=== PATIENT | female | born 1985 | race Hispanic/Latino ===

== ENCOUNTER 2021-10-11 11:30 | Outpatient (CLI) | payer OTHER | END 2021-10-11 11:31 | disposition home or self-care (01) | LOC: CSHLAB 11:30 | PROVIDERS: ATTEND Student in an Organized Health Care Education/Training Program | DX: O24.319 Unspecified pre-existing diabetes mellitus in pregnancy, unspecified trimester (principal); Z20.822 Contact with and (suspected) exposure to COVID-19 | CPT/HCPCS: 87811 ==

== ENCOUNTER 2021-10-14 19:15 | Inpatient (IN) | payer MEDICAID, OTHER ==
[~2021-10-14 19:15] MED LIST: Bupivacaine 0.25% HCL 30 ML VIAL ONE; ePHEDrine Sulfate 50 MG/10 ML VIAL ONE
[2021-10-14] MEDS ORDERED: Methylergonovine 0.2 MG/ML VIAL IM PRN (21:16)
[2021-10-14] MEDS ORDERED: Ondansetron PF 4 MG/2 ML Vial IVP PRN (21:16)
[2021-10-14] MEDS ORDERED: Lidocaine 1% (PF) 30 ML VIAL SC PRN (21:16)
[2021-10-14] MEDS ORDERED: Promethazine HCl 25 MG/ML VIAL IM PRN (21:16)
[2021-10-14] MEDS ORDERED: Misoprostol 200 MCG TAB PR PRN (21:16)
[2021-10-14] MEDS ORDERED: Docusate 100 MG CAP PO PRN (21:16)
[2021-10-14] MEDS ORDERED: Acetaminophen 500 MG TAB PO PRN (21:16)
[2021-10-14] MEDS ORDERED: Ibuprofen 800 MG TAB PO PRN (21:16)
[2021-10-14] MEDS ORDERED: Carboprost 250 MCG/ML AMP IM PRN (21:16)
[2021-10-14] MEDS ORDERED: hydrALAZINE 20 MG/ML VIAL SLOW IVP PRN (21:16)
[2021-10-14 21:18] VITALS: BMI 30.1
[2021-10-14] MEDS ORDERED: HumaLOG 300 UNITS/3 ML VIAL SC PRN (21:20)
[2021-10-14] MEDS ORDERED: Dextrose 50% Abboject 50 ML SYRINGE SLOW IVP PRN (21:20)
[2021-10-14] MEDS ORDERED: Dextrose 5% in Water 1,000 ML IV PRN (21:20)
[2021-10-14] MEDS ORDERED: NS w/ Oxytocin 30 units 500 ML IV SCH ×2 (21:30)
[2021-10-14] MEDS ORDERED: Lactated Ringer's 1,000 ML IV SCH (21:30)
[2021-10-14 21:40] LABS: Hemoglobin 13.2 g/dL (12.0-15.5); Mean Corpuscular HGB CONC 34.2 g/dL (32.0-36.0); Mean Corpuscular Hemoglobin 29.2 pg (27.0-33.0); Mean Corpuscular Volume 85.4 fl (81.6-98.3); Mean Platelet Volume 12.1 fl (7.4-10.4); Platelet Count 165 10x3/uL (150-450); Red Blood Cell (RBC) Count 4.52 10x6/uL (3.90-5.03); White Blood Cell (WBC) Count 7.9 10x3/uL (3.5-10.5)
[2021-10-14 22:11] LABS: Hep B Surf Ag Non-Reactive S/CO (NonReactive); Syphilis Antibody Nonreactive (Nonreactive); Syphilis Antibody Index 0.02 S/CO (<1.00 Non-Reactive)
[2021-10-14 22:16] LABS: HBSAg Index 0.19 S/CO (0-0.99)
[2021-10-15] MEDS ORDERED: Lactated Ringer's 1,000 ML IV SCH (00:08)
[2021-10-15] MEDS ORDERED: Fentanyl 2 mcg/Bup 0.1% Cadd 100 ML ONE (01:05)
[2021-10-15] MEDS ORDERED: Lactated Ringer's 500 ML IV PRN (01:49)
[2021-10-15] MEDS ORDERED: ePHEDrine Sulfate 50 MG/10 ML VIAL SLOW IVP PRN (01:49)
[2021-10-15] MEDS ORDERED: Acetaminophen 325 MG TAB PO PRN (01:49)
[2021-10-15] MEDS ORDERED: Ondansetron PF 4 MG/2 ML Vial IVP PRN (01:49)
[2021-10-15] MEDS ORDERED: diphenhydrAMINE 50 MG/ML VIAL IVP PRN (01:49)
[2021-10-15] MEDS ORDERED: Moisturizing Cream (Eucerin) 113 GM JAR TOP PRN (01:49)
[2021-10-15] MEDS ORDERED: Promethazine HCl 25 MG/ML VIAL IM PRN (01:49)
[2021-10-15] MEDS ORDERED: Naloxone HCl 0.4 mg/ml Vial IVP PRN ×2 (01:49)
[2021-10-15] MEDS ORDERED: Fentanyl 2 mcg/Bupivacaine 0.1% Cassette 100 ML EPIDURAL SCH (02:00)
[2021-10-15] MEDS ORDERED: Communication Order-Pharmacy FS SCH (02:00)
[2021-10-15] MEDS ORDERED: Misoprostol 200 MCG TAB ONE (08:33)
[2021-10-15] MEDS ORDERED: Bisacodyl 10 MG SUPP PR PRN (10:40)
[2021-10-15] MEDS ORDERED: hydrALAZINE 20 MG/ML VIAL SLOW IVP PRN (10:40)
[2021-10-15] MEDS ORDERED: Milk Of Magnesia 30 ML UDCUP PO PRN (10:40)
[2021-10-15] MEDS ORDERED: Lanolin Ointment 7 GM TUBE TOP PRN (10:40)
[2021-10-15] MEDS: Ibuprofen 800 MG TAB PO SCH ×2 (13:39→21:02)
[2021-10-15] MEDS: Ferrous Sulfate 325 MG TAB PO SCH (16:25)
[2021-10-15] MEDS ORDERED: Dextrose 50% Abboject 50 ML SYRINGE SLOW IVP PRN (18:03)
[2021-10-15] MEDS ORDERED: HumaLOG 300 UNITS/3 ML VIAL SC PRN (18:03)
[2021-10-15] MEDS ORDERED: Dextrose 5% in Water 1,000 ML IV PRN (18:03)
[2021-10-15] MEDS: Docusate 100 MG CAP PO SCH (21:02)
[2021-10-16] MEDS: Ibuprofen 800 MG TAB PO SCH ×3 (04:56→21:23)
[2021-10-16] MEDS: Ferrous Sulfate 325 MG TAB PO SCH ×2 (08:18→15:02)
[2021-10-16] MEDS: Docusate 100 MG CAP PO SCH ×2 (08:19→21:23)
[2021-10-16] MEDS: Prenatal Vitamin 1 TAB PO SCH (08:19)
[2021-10-16] MEDS ORDERED: Lactated Ringer's 1,000 ML IV SCH (09:15)
[2021-10-16] MEDS ORDERED: Boostrix 0.5 ML (Tdap) VIAL IM ONE (10:40)
[2021-10-16] MEDS: HumaLOG 300 UNITS/3 ML VIAL SC PRN (11:31)
[2021-10-16] MEDS ORDERED: metFORMIN 500 MG TAB PO SCH (12:00)
[2021-10-16] MEDS: NPH, Human Insulin Isophane 300 UNIT/3 ML VIAL SC SCH (18:01)
[2021-10-17] MEDS: Ibuprofen 800 MG TAB PO SCH (05:42)
[2021-10-17 08:00] VITALS: BP 106/59; TEMP 98.2
[2021-10-17] MEDS: Ferrous Sulfate 325 MG TAB PO SCH (08:05)
[2021-10-17] MEDS: Docusate 100 MG CAP PO SCH (08:06)
[2021-10-17] MEDS: Prenatal Vitamin 1 TAB PO SCH (08:06)
[2021-10-17] MEDS: NPH, Human Insulin Isophane 300 UNIT/3 ML VIAL SC SCH (08:06)
[2021-10-17] MEDS ORDERED: metFORMIN 500 MG TAB PO SCH (09:00)
[2021-10-17] MEDS: HumaLOG 300 UNITS/3 ML VIAL SC PRN (11:53)
== END 2021-10-17 14:45 | disposition home or self-care (01) | DRG 805 ==
LOC: CSHLD 19:20 → CSHPP 10-15 10:58
PROVIDERS: ADMIT Student in an Organized Health Care Education/Training Program; ATTEND Student in an Organized Health Care Education/Training Program
PROC: 10E0XZZ Delivery of Products of Conception, External Approach (ICD-10-PCS; principal; 2021-10-15)
PROC: 3E033VJ Introduction of Other Hormone into Peripheral Vein, Percutaneous Approach (ICD-10-PCS; 2021-10-15)
DX: O24.12 Pre-existing type 2 diabetes mellitus, in childbirth (principal); O45.93 Premature separation of placenta, unspecified, third trimester; Z37.0 Single live birth; O98.52 Other viral diseases complicating childbirth; B00.89 Other herpesviral infection; O99.43 Diseases of the circulatory system complicating the puerperium; Z3A.38 38 weeks gestation of pregnancy; Z86.16 Personal history of COVID-19; Z79.84 Long term (current) use of oral hypoglycemic drugs; Z79.899 Other long term (current) drug therapy; I95.9 Hypotension, unspecified; K59.00 Constipation, unspecified; O99.63 Diseases of the digestive system complicating the puerperium; E86.1 Hypovolemia; O99.285 Endocrine, nutritional and metabolic diseases complicating the puerperium
CPT/HCPCS: 36415; 36416; 51702; 85027; 86780; 86850; 86900; 86901; 87340; 88307; J1815; J2405; J2590; S0020